=== PATIENT | female | born 1990 | race Caucasian/White ===

== ENCOUNTER 2016-09-18 12:29 | Emergency (ER) | payer MEDICAID, OTHER ==
[~2016-09-18 12:29] MED LIST: AMIT8CAP6 OR; IMIT25TA PO; NUVAMIS PV; SENN1TAB11 PO; TOPI25 PO; [UNRECOGNIZED DRUG - CODE] XX
[2016-09-18 13:49] LABS: BACTERIA, URINE RARE /hpf; BLOOD, URINE NEG (NEG); GLUCOSE,URINE NEG (NEG); KETONE, URINE NEG (NEG); NITRITE,URINE NEG (NEG); SQUAMOUS EPITHELIAL CELL URINE 1 /hpf (0-5); TRANSITIONAL EPI CELLS, URINE <1 /hpf; URINE COLOR YELLOW (YELLW/STRAW)
[2016-09-18 13:50] LABS: COMMENT (UR) CULT NOT INDICATED; CULTURE IF INDICATED CULT NOT INDICATED
--- NOTE | 2016-09-18 13:56 | PD ---
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 1 oz. vaginal delivery she had an elevated blood pressure she states she was 34 weeks Second baby born 2009 female infant 7 lbs. 12 oz. induced at 41 weeks Third baby born 2014 female 37 weeks 5 lbs. 12 oz. vaginal delivery Past Surgical History Narrative Surgical IUD removal and a D&C Family History Narrative Family History Patient's mother has lupus Social History Alcohol Use: No Tobacco Use: No Substance Abuse: No Allergies-Medications (Allergen,Severity, Reaction): Coded Allergies: Doxycycline (Verified Allergy, Severe, 03/14/11) Latex (Verified Allergy, Severe, 03/14/11) Lortab (Verified Allergy, Severe, 03/14/11) Macrodantin (Verified Allergy, Severe, 03/14/11) Oxycodone (Verified Allergy, Severe, 03/14/11) Sulfa (Verified Allergy, Severe, 03/14/11) Uncoded Allergies: CODIENE (Allergy, Severe, 03/14/11) Home Meds Reported Medications Topiramate (Topamax)25 Mg Tab25 Mg PO 03/14/11 Etonogestrel-Ethinyl Estradiol (Nuvaring) Vagring1 Ea PV DIRECTED VAGINAL RING TO REMAIN IN PLACE FOR THREE WEEKS. IT IS REMOVED FOR A ONE WEEK BREAK. A NEW RING IS INSERTED ONE WEEK AFTER THE LAST RING WAS REMOVED. 03/14/11 Sumatriptan Succinate (Imitrex)25 Mg Tab25 Mg PO 03/14/11 Docusate Sod/Senna (Senna Plus 8.6-50 mg)1 Tab Tab1 Tab PO HS 03/14/11 Amitraz (Bulk) (Amitraz) Pow1 Xx 03/14/11 Lubiprostone (Amitiza)8 Mcg Cap8 Mcg OR BID 03/14/11 Physical Exam Narrative GENERAL: Well-nourished, well-developed patient. Alert oriented 3 and cooperative in no acute distress CARDIOVASCULAR: Regular rate and rhythm without murmurs, gallops, or rubs. RESPIRATORY: Breath sounds equal bilaterally. No accessory muscle use. ABDOMEN/GI: Gravid consistent with 32 weeks soft occasional palpable contraction Gravid to [-] weeks size 32 Fundal Height: [-] GENITOURINARY: Speculum exam is done no fluid no blood the cervix is grossly long and closed thin white discharge External Genitalia: intact and normal in appearance BUS glands: [-] Cervix: [-] Posterior firm Dilatation: [-] Closed Effacement: [-] 0 Station: [-] High Presentation: [-] Membranes: [intact Uterine Contractions: [-] Irregular FHT's: Category: [-] 1 Baseline: [-]140 Reactive: [-] + Variability: [-] Moderate Decels: [-] There were no decelerations as we are sliding the patient down to the speculum exam there appeared to be a deceleration however this was not a deceleration EXTREMITIES: No cyanosis or edema. NEUROLOGICAL: Awake and alert. Motor and sensory grossly within normal limits. Five out of 5 muscle strength in all muscle groups. Normal speech. Data Data Vital Signs Reviewed: Yes (blood pressures 123/53 pulse 108) Orders Urinalysis - C+S If Indicated (09/18/16 13:13) [facility] Medical Record Reviewed: No Interpretation(s) 25-year-old 7 para 3 at 32 weeks and 1 day Not in active labor Franklin Dalton contractions Rule out UTI Narrative Course / MDM Patient continues to have irregular contractions states she feels the mildly in her back Urinalysis is negative fibronectin is pending We'll start an IV to hydrate Terbutaline 0.25 mg subcutaneous Reevaluation Ultrasound is done Cervical length is 3.97 cm Biophysical profile 10 out of 10 Contractions have spaced out We'll discharge patient home kick counts Follow-up with her physician Plan External monitoring By mouth fluid hydration Urinalysis fibronectin Will by mouth fluid hydrate the patient the fibronectin is negative urinalysis is negative Contractions resolve will discharge home kick count Follow-up appointment with her OB Diagnosis Diagnosis: Primary Impression: Sean Dalton contractions Additional Impression: 32 weeks gestation of Disposition: 01 DISCHARGE HOME Condition: Stable Obdulia Bee MD Sep 18, 2016 13:56
[2016-09-18] MEDS ORDERED: LACTATED RINGER'S 1000 ML INJ 1,000 ML IV SCH (14:18)
[2016-09-18] MEDS ORDERED: TERBUTALINE INJ 1 MG/ML AMP SQ ONE (14:30)
== END 2016-09-18 15:52 | disposition home or self-care (01) ==
LOC: HOBED 12:29
DX: O47.03 False labor before 37 completed weeks of gestation, third trimester (principal); Z3A.32 32 weeks gestation of pregnancy
CPT/HCPCS: 59025; 76816; 81001; 82731; 96360; 96372; 99284; J3105; J7120

== ENCOUNTER 2016-10-22 15:43 | Emergency (ER) | payer OTHER ==
[~2016-10-22] VITALS: Ht 162.6 cm; Wt 88.9 kg
--- NOTE | 2016-10-22 16:06 | PD ---
HPI Chief Complaint Contractions Date Seen: October 22, 2016 Travel History International Travel<30 Days: No Contact w/Intl Traveler<30Days: No Known Affected Area: No History of Present Illness HPI 26-year-old female AB 3 is here at 36 weeks and 4 days complaining of contractions that have been apparent since this morning. Patient denies vaginal bleeding she is having some vaginal discharge thick white in appearance. She's had good movement contractions have not progressed and have not become more frequent. Had a group B strep done 2 weeks ago but does not know her results yet Para: 3 : 7 Miscarriage: 3 History Past Medical History Medical History: Denies Significant Hx Obstetric History Obstetric History Spontaneous vaginal delivery 3 Past Surgical History Surgical History: No Previous Surgery Family History Family History: Negative Social History Alcohol Use: No Tobacco Use: No Substance Abuse: No Allergies-Medications (Allergen,Severity, Reaction): Coded Allergies: Doxycycline (Verified Allergy, Severe, 03/14/11) Latex (Verified Allergy, Severe, 03/14/11) Lortab (Verified Allergy, Severe, 03/14/11) Macrodantin (Verified Allergy, Severe, 03/14/11) Oxycodone (Verified Allergy, Severe, 03/14/11) Sulfa (Verified Allergy, Severe, 03/14/11) Azithromycin (Unverified Allergy, Intermediate, 10/22/16) Keflex (Unverified Allergy, Mild, 10/22/16) Uncoded Allergies: CODIENE (Allergy, Severe, 03/14/11) Home Meds Reported Medications Topiramate (Topamax)25 Mg Tab25 Mg PO 03/14/11 Etonogestrel-Ethinyl Estradiol (Nuvaring) Vagring1 Ea PV DIRECTED VAGINAL RING TO REMAIN IN PLACE FOR THREE WEEKS. IT IS REMOVED FOR A ONE WEEK BREAK. A NEW RING IS INSERTED ONE WEEK AFTER THE LAST RING WAS REMOVED. 03/14/11 Sumatriptan Succinate (Imitrex)25 Mg Tab25 Mg PO 03/14/11 Docusate Sod/Senna (Senna Plus 8.6-50 mg)1 Tab Tab1 Tab PO HS 03/14/11 Amitraz (Bulk) (Amitraz) Pow1 Xx 03/14/11 Lubiprostone (Amitiza)8 Mcg Cap8 Mcg OR BID 03/14/11 Review of Systems Except as stated in HPI: all other systems reviewed are Neg Physical Exam Narrative GENERAL: Well-nourished, well-developed patient. SKIN: Warm and dry. HEAD: Normocephalic and atraumatic. EYES: No scleral icterus. No injection or drainage. ENT: No nasal drainage noted. Mucous membranes pink. Airway patent. NECK: Supple, trachea midline. No JVD. CARDIOVASCULAR: Regular rate and rhythm without murmurs, gallops, or rubs. RESPIRATORY: Breath sounds equal bilaterally. No accessory muscle use. BREASTS: Bilateral exam showed no masses , no retractions, no nipple discharge. ABDOMEN/GI: Abdomen soft, non-tender, bowel sounds present, no rebound, no guarding Gravid to [-36] weeks size Fundal Height: [-36] GENITOURINARY: External Genitalia: intact and normal in appearance BUS glands: [Normal-] Cervix: [-Posterior] Dilatation: [-2-3] Effacement: [-Long] Station: [High-] Presentation: [Vertex-] Membranes: Intact Uterine Contractions: [Irregular-] FHT's: Category: [1-] Baseline: 140 Reactive: Moderate Variability: Moderate Decels: Absent EXTREMITIES: No cyanosis or edema. BACK: Nontender without obvious deformity. No CVA tenderness. NEUROLOGICAL: Awake and alert. Motor and sensory grossly within normal limits. Five out of 5 muscle strength in all muscle groups. Normal speech. Reexamination at 1700 Cervix unchanged Contractions are irregular and every 10-15 minutes Data Data Vital Signs Reviewed: Yes MDM Plan 36-37 weeks with false labor, no cervical change in 2 hours Discharge home, patient has follow up appt tomorrow Diagnosis Diagnosis: Primary Impression: 36 weeks gestation of Additional Impression: Sean Dalton' contraction Disposition: DISCHARGE HOME Charlene Ferrera MD October 22, 2016 16:06
== END 2016-10-22 17:28 | disposition home or self-care (01) ==
LOC: HOBED 15:43
DX: O47.03 False labor before 37 completed weeks of gestation, third trimester (principal); Z3A.36 36 weeks gestation of pregnancy
CPT/HCPCS: 99284

== ENCOUNTER 2016-10-28 00:26 | Inpatient (IN) | payer OTHER ==
[2016-10-28] VITALS (28 sets, daily range): BP systolic 110–175; BP diastolic 27–130; PULSE 57–133; RESP 18; TEMP 97.9–98.5; O2SAT 99–100
[~2016-10-28] VITALS: Ht 162.6 cm; Wt 89.8 kg
[2016-10-28] MEDS ORDERED: PRENTAB81 PO (00:54)
[2016-10-28] MEDS ORDERED: LACTATED RINGER'S 1000 ML INJ 1,000 ML IV PRN (01:11)
[2016-10-28] MEDS ORDERED: LACTATED RINGER'S 1000 ML INJ 1,000 ML IV SCH (01:11)
[2016-10-28] MEDS ORDERED: SODIUM CHLORID 0.9% 500 ML INJ 500 ML IV PRN (01:15)
[2016-10-28] MEDS ORDERED: OXYTOCIN 30 UNITS-500ML PREMIX 500 ML IV ONE (01:15)
[2016-10-28] MEDS ORDERED: CITRIC ACID-SODIUM CITRATE LIQ 30 ML UDC PO SCH (01:15)
[2016-10-28] MEDS ORDERED: LIDOCAINE HCL 1% 50 ML VIAL I-DERMAL PRN (01:15)
[2016-10-28] MEDS ORDERED: LIDOCAINE HCL 1% 50 ML VIAL INFIL PRN (01:15)
[2016-10-28] MEDS ORDERED: MINERAL OIL 10 ML VIAL TOPICAL PRN (01:15)
--- NOTE | 2016-10-28 01:21 | HHI.HP ---
HPI Chief Complaint Contractions Date Seen: October 28, 2016 Travel History International Travel<30 Days: No Contact w/Intl Traveler<30Days: No Known Affected Area: No History of Present Illness HPI To 26-year-old white female at 37 weeks presents complaining of regular contractions denies bleeding or ruptured membranes. Baby is active. heart rate tracing is reactive. She is sophie every [address] Wray for care. records are available. 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 Obstetric History Obstetric History 3 vaginal deliveries several early losses she's had the D&Cs, she had difficulty with an IUD removal in the past Past Surgical History Narrative Surgical D&Cs Social History Alcohol Use: No Tobacco Use: No Substance Abuse: No Allergies-Medications (Allergen,Severity, Reaction): Coded Allergies: Doxycycline (Verified Allergy, Severe, 10/28/16) Latex (Verified Allergy, Severe, 10/28/16) Lortab (Verified Allergy, Severe, 10/28/16) Macrodantin (Verified Allergy, Severe, 10/28/16) Oxycodone (Verified Allergy, Severe, 10/28/16) Sulfa (Verified Allergy, Severe, 10/28/16) Azithromycin (Unverified Allergy, Intermediate, 10/28/16) Keflex (Unverified Allergy, Mild, 10/28/16) Uncoded Allergies: CODIENE (Allergy, Severe, 03/14/11) Home Meds Reported Medications Vit W/ Ferrous Fumara (Pnv Folic Acid + Iron Mul 27-1 mg)1 Tab Tab1 Tab PO DAILY 10/28/16 Discontinued Reported Medications Topiramate (Topamax)25 Mg Tab25 Mg PO 03/14/11 Etonogestrel-Ethinyl Estradiol (Nuvaring) Vagring1 Ea PV DIRECTED VAGINAL RING TO REMAIN IN PLACE FOR THREE WEEKS. IT IS REMOVED FOR A ONE WEEK BREAK. A NEW RING IS INSERTED ONE WEEK AFTER THE LAST RING WAS REMOVED. 03/14/11 Sumatriptan Succinate (Imitrex)25 Mg Tab25 Mg PO 03/14/11 Docusate Sod/Senna (Senna Plus 8.6-50 mg)1 Tab Tab1 Tab PO HS 03/14/11 Amitraz (Bulk) (Amitraz) Pow1 Xx 03/14/11 Lubiprostone (Amitiza)8 Mcg Cap8 Mcg OR BID 03/14/11 Review of Systems General / Constitutional: No: Fever, Weight Gain, Chills, Other Eyes: No: Diploplia, Blurred Vision, Visual changes, Pain, Photophobia HENT: No: Headaches, Vertigo, Lightheadedness Cardiovascular: No: Irregular Rhythm, Chest Pain or Discomfort, Palpitations, Tachycardia, Syncope, Varicosities, Edema, Cyanosis Respiratory: No: Cough, Short of Breath, Other Gastrointestinal: Abdominal Pain, No: Nausea, Vomiting, Diarrhea Genitourinary: No: Decreased Urinary Output, Oliguria Musculoskeletal: No: Limited ROM, Weakness, Cramping, Edema, Pain Skin: No Rash, No Itching, No Dryness, No Lumps, No Change in Pigmentation, No Change in Nails, No Alopecia, No Lesions Neurologic: No: Weakness, Dizziness, Syncope, Focal Abnormalities, Coordination Problem, Headache, Slurred Speech, Seizures Psychiatric: No: Depression, Suicidal Ideations, Homicidal Ideation Endocrine: No: Heat Intolerance, Cold Intolerance, Polydipsia, Polyuria, Other Physical Exam Narrative GENERAL: Well-nourished, well-developed patient. SKIN: Warm and dry. HEAD: Normocephalic and atraumatic. EYES: No scleral icterus. No injection or drainage. ENT: No nasal drainage noted. Mucous membranes pink. Airway patent. NECK: Supple, trachea midline. No JVD. CARDIOVASCULAR: Regular rate and rhythm without murmurs, gallops, or rubs. RESPIRATORY: Breath sounds equal bilaterally. No accessory muscle use. BREASTS: Bilateral exam showed no masses , no retractions, no nipple discharge. ABDOMEN/GI: Abdomen soft, non-tender, bowel sounds present, no rebound, no guarding Gravid to [38-] weeks size Fundal Height: [37-] GENITOURINARY: External Genitalia: intact and normal in appearance BUS glands: [-] Cervix: [-] Dilatation: [4-] Effacement: [80-] Station: [0-] Presentation: [vtx-] Membranes: [intact ] Uterine Contractions: [q 2 min-] FHT's: Category: [1-] Baseline: [133-] Reactive: [yes-] Variability: [mod-] Decels: [-none] EXTREMITIES: No cyanosis or edema. BACK: Nontender without obvious deformity. No CVA tenderness. NEUROLOGICAL: Awake and alert. Motor and sensory grossly within normal limits. Five out of 5 muscle strength in all muscle groups. Normal speech. Assessment/Plan Assessment and Plan This patient is a 26-year-old white female at [address] Wray who presents in labor. She is 4 cm dilated 80% and 0 station. Baby is vertex presentation. Contractions are regular membranes intact and heart rate tracing is reactive. Dr. Coles's certified lactation counselor for the [facility] would give him a call and let him know he has a patient in labor Brad Gavlin II, MD October 28, 2016 01:21
[2016-10-28] MEDS ORDERED: SODIUM CHLOR 0.9% 1000 ML INJ 1,000 ML IV PRN (01:31)
[2016-10-28 02:08] LABS: BASOPHIL % 0.2 % (0.0-2.0); EOSINOPHIL # 0.3 TH/MM3 (0-0.4); EOSINOPHIL % 2.2 % (0.0-4.0); HEMATOCRIT 32.1 % (35.0-46.0); HEMO FLAGS DIFF FINAL; LYMPH % 21.2 % (9.0-44.0); LYMPHOCYTE # 2.5 TH/MM3 (1.0-4.8); MEAN CELL VOLUME 77.1 FL (80.0-100.0); MEAN CORPUSCULAR HEMOGLOBIN 25.1 PG (27.0-34.0); MEAN CORPUSCULAR HGB CONC 32.5 % (32.0-36.0); MONO % 9.8 % (0.0-8.0); NEUT % 66.6 % (16.0-70.0); PLATELET COUNT 287 TH/MM3 (150-450); RED BLOOD COUNT 4.17 MIL/MM3 (4.00-5.30); RED CELL DISTRIBUTION WIDTH 13.8 % (11.6-17.2); WHITE BLOOD COUNT 11.9 TH/MM3 (4.0-11.0)
[2016-10-28 02:13] LABS: BACTERIA, URINE OCC /hpf; BLOOD, URINE SMALL (NEG); COMMENT (UR) CULTURE INDICATED; CULTURE IF INDICATED CULTURE INDICATED; GLUCOSE,URINE NEG (NEG); KETONE, URINE NEG (NEG); MUCUS URINE FEW /lpf (OCC); NITRITE,URINE NEG (NEG); PH, URINE 6.5 (5.0-8.5); RENAL EPITHELIAL CELLS <1 /hpf; SQUAMOUS EPITHELIAL CELL URINE 2 /hpf (0-5); TRANSITIONAL EPI CELLS, URINE <1 /hpf; URINE COLOR YELLOW (YELLW/STRAW)
[2016-10-28] MEDS ORDERED: OXYTOCIN 30 UNITS-500ML PREMIX 500 ML IV SCH (07:45)
--- NOTE | 2016-10-28 07:45 | PD.LABORPN ---
Subjective Subjective tearful with contractions, declines epidural Objective Vital Signs Vital Signs Date Time Temp Pulse Resp B/P Pulse Ox O2 Delivery O2 Flow Rate FiO2 10/28/16 07:27 98.1 85 18 119/74 10/28/16 06:30 97.9 10/28/16 06:30 18 10/28/16 06:23 87 127/63 10/28/16 06:21 88 139/91 10/28/16 01:45 97.9 18 10/28/16 01:44 102 133/85 Objective Pelvic Exam: Cervix: [mid] Dilatation: [4-5] Effacement: [70] Station: [-1] Presentation: [vtx] Membranes: AROM'c clear this check Uterine Contractions: [q4-5 min] FHT's: Category: [I] Baseline: [140s] Reactive: [y] Variability: [min to mod] Decels: [no] Assessment/Plan Problem List: (1) Labor and delivery indication for care or intervention (2) Grand multipara in labor in third trimester Assessment and Plan 26 yo at term in labor, admitted overnight 1) labor: minimal change since admission, will start augmentation with pitocin, AROM'd this check; pt declines epidural; will give 1/2 dose of IV analgesic now for comfort 2) GBS neg 3) status: vertex, Cat I tracing Audrey Morelos MD October 28, 2016 07:44
[2016-10-28] MEDS ORDERED: fentaNYL 2MCG-BUPIV 0.125% INJ 100 ML ONE (08:09)
[2016-10-28] MEDS ORDERED: ePHEDrine/NS 25 MG/5 ML SYR ONE (08:10)
[2016-10-28] MEDS ORDERED: MISOPROSTOL 200 MCG TAB ONE (08:55)
--- NOTE | 2016-10-28 09:12 | PD.OB.DELI ---
Delivery Date: October 28, 2016 Anesthesia: Epidural Episiotomy: None Vaginal Delivery: Normal Presentation: Occiput anterior Nuchal Cord: None Delayed cord clamping (45 sec): Yes Infant: Female, Single One Minute : 8 Five Minute : 9 Weight: 7#7oz Placenta: Spontaneous delivery, Intact, 3 vessel cord Laceration: Perineal laceration, 1 deg Repair: Chromic running Additional Information EBL 200 mL prophylactic misoprostol 600 mcg placed rectally due to multiparous status and quick change from 4>complete in 30 min Audrey Morelos MD October 28, 2016 09:12
--- NOTE | 2016-10-28 09:13 | HHI.DCPOC ---
Discharge Care Plan Diagnosis: (1) (spontaneous vaginal delivery) Report Symptoms to Your Doctor -Temperate above 100.5 degrees -Redness, of incision or excessive or foul smelling drainage -Unusual pain or calf pain -Increased vaginal bleeding -Painful or difficulty urinating -Feelings of extreme sadness or anxiety after 2 weeks Goals to Promote Your Health * To prevent worsening of your condition and complications * To maintain your health at the optimal level Directions to Meet Your Goals Take your medications as prescribed Follow your dietary instruction Follow activity as directed Ensure plenty of rest for recovery Drink fluids for hydration Keep your appointments as scheduled Take your immunizations and boosters as scheduled If your symptoms worsen call your PCP, if no PCP go to Urgent Care Center or Emergency Room Smoking is Dangerous to Your Health. Avoid second hand smoke Call the 24-hour crisis hotline for domestic abuse at Audrey Morelos MD October 28, 2016 09:13
[2016-10-28] MEDS ORDERED: WITCH HAZEL 50%/GLYCERIN 12.5% 40 PAD JAR TOPICAL PRN (09:15)
[2016-10-28] MEDS ORDERED: DO NOT ADMINISTER ANTICOAGULANTS PRN (09:15)
[2016-10-28] MEDS ORDERED: SODIUM CHLORIDE 0.9% FLUSH 10 ML FLUSH IV FLUSH PRN (09:15)
[2016-10-28] MEDS ORDERED: BENZOCAINE 20% TOPICAL SPRAY 60 ML CAN TOPICAL PRN (09:15)
[2016-10-28] MEDS: SODIUM CHLORIDE 0.9% FLUSH 10 ML FLUSH IV FLUSH SCH (09:15)
[2016-10-28] MEDS ORDERED: NO SYSTEM NARCOTICS PRN (09:15)
[2016-10-28] MEDS ORDERED: ePHEDrine/NS 25 MG/5 ML SYR IV PRN (09:15)
[2016-10-28] MEDS ORDERED: ALUMINUM/MAGNESIUM/SIMETH 30 ML CUP PO PRN (09:15)
[2016-10-28] MEDS ORDERED: ONDANSETRON ODT 4 MG TAB PO PRN (09:15)
[2016-10-28] MEDS ORDERED: fentaNYL 2MCG-BUPIV 0.125% 100 ML EPIDURAL SCH (09:15)
[2016-10-28] MEDS ORDERED: DOCUSATE SODIUM 50 MG/SENNA 8.6 MG TAB PO PRN (09:15)
[2016-10-28] MEDS ORDERED: ZOLPIDEM TARTRATE 5 MG TAB PO PRN (09:15)
[2016-10-28] MEDS: IBUPROFEN 600 MG TAB PO PRN ×2 (09:58→17:14)
[2016-10-28] MEDS: ACETAMINOPHEN 325 MG TAB PO PRN ×2 (12:50→20:43)
[2016-10-28] MEDS ORDERED: DIPHTH/TETANUS/ACEL PERTUSSIS (BOOSTER) 0.5 ML VIAL/PFS IM ONE (16:00)
[2016-10-28] MEDS ORDERED: MEASLES, MUMPS, RUBELLA VACCINE 0.5 ML VIAL SQ ONE (16:00)
[2016-10-28] MEDS ORDERED: KETOROLAC TROMETHAMINE 60 MG/2 ML (IM) VIAL IM ONE (23:00)
[2016-10-29] MEDS: ACETAMINOPHEN 325 MG TAB PO PRN ×4 (00:47→21:04)
[2016-10-29 08:44] VITALS: BP 116/78; PULSE 76; RESP 16; TEMP 98.3
[2016-10-29] MEDS: IBUPROFEN 600 MG TAB PO PRN ×3 (08:54→21:04)
--- NOTE | 2016-10-29 09:39 | HHI.OB ---
Subjective Post Day: 1 Remarks PPD#1, moderate c/o of fatique,cramps. Infant female with murmur and mold elevation in bilirubin Objective Vitals/I&O Vital Signs Date Time Temp Pulse Resp B/P Pulse Ox O2 Delivery O2 Flow Rate FiO2 10/28/16 20:00 98.5 89 18 118/69 10/28/16 15:45 98.4 57 18 114/75 10/28/16 10:46 67 122/68 10/28/16 10:31 72 127/74 10/28/16 10:16 82 121/64 10/28/16 10:01 98.5 82 18 121/74 10/28/16 09:46 77 122/59 Objective Remarks GENERAL: Well-nourished, well-developed patient. CARDIOVASCULAR: Regular rate and rhythm without murmurs, gallops, or rubs. RESPIRATORY: Breath sounds equal bilaterally. No accessory muscle use. ABDOMEN/GI: Abdomen soft, non-tender. Fundus: Firm, non-tender at umbilicus. GENITOURINARY: Light to moderate bleeding. EXTREMITIES: No cyanosis or edema, non-tender, without signs of DVT. Medications and IVs Current Medications Medications (Trade) Dose Ordered Sig/Yousif Route Start Time Stop Time Status Last Admin (NS Flush) 2 ml BID IV FLUSH 10/28/16 09:15 (NS Flush) 2 ml UNSCH PRN IV FLUSH 10/28/16 09:15 (Motrin) 600 mg Q6H PRN PO 10/28/16 09:15 10/29/16 08:54 (Americaine 20% Top Spr) 1 spray Q4H PRN TOPICAL 10/28/16 09:15 (Tucks Pads) 1 applic QID PRN TOPICAL 10/28/16 09:15 (Maria Antonia-Colace) 2 tab Q12H PRN PO 10/28/16 09:15 (Ambien) 5 mg HS PRN PO 10/28/16 09:15 (Mag-Al Plus Susp Liq) 15 ml Q8H PRN PO 10/28/16 09:15 (Zofran Odt) 4 mg Q6H PRN PO 10/28/16 09:15 (Tylenol) 650 mg Q4H PRN PO 10/28/16 09:15 10/29/16 08:54 Assessment/Plan Problem List: (1) Labor and delivery indication for care or intervention (2) Grand multipara in labor in third trimester Assessment and Plan PPD#1, Stable, Infant daughter is being evaluated for murmur and elevated bili. Discharge Planning Does not meet criteria, Attending Attestation seen by Agus Simons MD October 29, 2016 09:39
[2016-10-29] MEDS: SODIUM CHLORIDE 0.9% FLUSH 10 ML FLUSH IV FLUSH SCH (21:00)
[2016-10-30] MEDS: ACETAMINOPHEN 325 MG TAB PO PRN ×3 (01:52→11:18)
[2016-10-30] MEDS: IBUPROFEN 600 MG TAB PO PRN ×2 (03:25→15:46)
--- NOTE | 2016-10-30 08:57 | HHI.OB ---
Subjective Post Day: 2 Remarks cramping while Objective Vitals/I&O vss afeb Objective Remarks GENERAL: Well-nourished, well-developed patient. CARDIOVASCULAR: Regular rate and rhythm without murmurs, gallops, or rubs. RESPIRATORY: Breath sounds equal bilaterally. No accessory muscle use. ABDOMEN/GI: Abdomen soft, non-tender. Fundus: Firm, non-tender at umbilicus. GENITOURINARY: Light to moderate bleeding. EXTREMITIES: No cyanosis or edema, non-tender, without signs of DVT. Medications and IVs Current Medications Medications (Trade) Dose Ordered Sig/Yousif Route Start Time Stop Time Status Last Admin (NS Flush) 2 ml BID IV FLUSH 10/28/16 09:15 (NS Flush) 2 ml UNSCH PRN IV FLUSH 10/28/16 09:15 (Motrin) 600 mg Q6H PRN PO 10/28/16 09:15 10/30/16 03:25 (Americaine 20% Top Spr) 1 spray Q4H PRN TOPICAL 10/28/16 09:15 10/30/16 06:33 (Tucks Pads) 1 applic QID PRN TOPICAL 10/28/16 09:15 10/30/16 06:33 (Maria Antonia-Colace) 2 tab Q12H PRN PO 10/28/16 09:15 (Ambien) 5 mg HS PRN PO 10/28/16 09:15 (Mag-Al Plus Susp Liq) 15 ml Q8H PRN PO 10/28/16 09:15 (Zofran Odt) 4 mg Q6H PRN PO 10/28/16 09:15 (Tylenol) 650 mg Q4H PRN PO 10/28/16 09:15 10/30/16 06:28 Assessment/Plan Problem List: (1) Labor and delivery indication for care or intervention (2) Grand multipara in labor in third trimester (3) (spontaneous vaginal delivery) Assessment and Plan PPD#2, Stable, daughter is being evaluated for murmur and elevated bili. Discharge Planning routine Attending Attestation pt seen by Mima Moura MD October 30, 2016 08:57
[2016-10-30] MEDS ORDERED: IBUP-232 PO (08:59)
[2016-10-30] MEDS ORDERED: KETOROLAC TROMETHAMINE 60 MG/2 ML (IM) VIAL IM ONE (09:00)
== END 2016-10-30 16:17 | disposition home or self-care (01) | DRG 775 ==
LOC: HOBED 00:26 → H2EB 01:13 → H1EA 11:11
PROVIDERS: ADMIT Obstetrics & Gynecology; ATTEND Obstetrics & Gynecology
PROC: 10E0XZZ Delivery of Products of Conception, External Approach (ICD-10-PCS; principal; 2016-10-28)
PROC: 0HQ9XZZ Repair Perineum Skin, External Approach (ICD-10-PCS; 2016-10-28)
PROC: 10907ZC Drainage of Amniotic Fluid, Therapeutic from Products of Conception, Via Natural or Artificial Opening (ICD-10-PCS; 2016-10-28)
PROC: 00HU33Z Insertion of Infusion Device into Spinal Canal, Percutaneous Approach (ICD-10-PCS; 2016-10-28)
PROC: 3E0R3CZ (ICD-10-PCS; 2016-10-28)
DX: O70.0 First degree perineal laceration during delivery (principal); Z37.0 Single live birth; Z3A.37 37 weeks gestation of pregnancy
CPT/HCPCS: 81001; 85025; 86900; 86901; 87086; 90715; 99285; J1885; J3010